=== PATIENT | female | born 1990 | race Two or more races ===

== ENCOUNTER → 2016-11-30 | Outpatient (CLI) | payer OTHER | LOC: MW.CHOBGYN 10:47 → MERGE 10:47 | PROVIDERS: ATTEND Obstetrics & Gynecology | DX: O09.30 Supervision of pregnancy with insufficient antenatal care, unspecified trimester (principal) | CPT/HCPCS: 36415; 80305; 81003; 85027; 86592; 86762; 86803; 86850; 86900; 86901; 87070; 87086; 87340; 87389; 87491; 87591 ==

== ENCOUNTER → 2016-12-08 | Outpatient (CLI) | payer OTHER ==
--- NOTE | 2016-12-08 16:58 | US ---
Examination: Greater than 14 weeks transabdominal ultrasound with color Doppler and M-mode evaluatio n. HISTORY: Light care FINDINGS: LMP is 06/27/2016 EVALUATION: Fundal placenta with a breech lie and grade 1-2. Visually amniotic fluid is within normal limits. Three-vessel cord is seen. Ventricles are within normal limits. Four chamber heart is noted. Heart rate is 135 beats per minute. BIOMETRY AND GESTATIONAL AGE: Biparietal diameter 5.5 cm. The abdominal circumference measures 18.3 cm. The femoral length is 4 cm with head circumference of 21.4 cm. Gestational age is 23 weeks and 0 days. The expected date of de livery is approximately 04/06/2017. Fetus weight is 563 grams. Overall the fetus is within the 27th p ercentile. Other detail anatomy summarized into PACs sheet after the images. No anatomical anomalies. IMPRESSION: Single active IU with breech fetus. Fundal placenta with grade 1-2, no placenta previa. No anomalies are seen. Amniotic fluid appears within normal limits.
== END ==
LOC: MW.US 10:16
PROVIDERS: ATTEND Obstetrics & Gynecology
DX: Z36 Encounter for antenatal screening of mother (principal); Z3A.23 23 weeks gestation of pregnancy
CPT/HCPCS: 76805; 76805-26

== ENCOUNTER → 2016-12-28 | Outpatient (CLI) | payer OTHER | LOC: MW.CHOBGYN 09:09 | PROVIDERS: ATTEND Obstetrics & Gynecology | DX: Z34.90 Encounter for supervision of normal pregnancy, unspecified, unspecified trimester (principal); Z53.8 Procedure and treatment not carried out for other reasons | CPT/HCPCS: 81003 ==

== ENCOUNTER → 2017-01-24 | Outpatient (CLI) | payer OTHER | END | disposition home or self-care (01) | LOC: MW.CHOBGYN 15:41 | PROVIDERS: ATTEND Obstetrics & Gynecology | DX: Z34.90 Encounter for supervision of normal pregnancy, unspecified, unspecified trimester (principal) | CPT/HCPCS: 36415; 81003; 82950; 85027 ==

== ENCOUNTER 2017-04-04 06:23 | Inpatient (IN) | payer MEDICAID ==
[2017-04-04] MEDS ORDERED: Sodium Chloride 0.9% 10 ML Syringe FLUSH PRN (06:34)
[2017-04-04] MEDS ORDERED: Nalbuphine 10 MG/1 ML Vial IVPUSH PRN (06:34)
[2017-04-04] MEDS ORDERED: Terbutaline 1 MG/ML SDV SUBCUT PRN (06:34)
[2017-04-04] MEDS ORDERED: Sodium Chloride 0.9% 2.5 ML Syringe FLUSH PRN (06:34)
[2017-04-04] MEDS ORDERED: Carboprost Tromethamine 250 MCG/1 ML Amp IM PRN (06:34)
[2017-04-04] MEDS ORDERED: Misoprostol 200 MCG Tab PO PRN (06:34)
[2017-04-04] MEDS ORDERED: Misoprostol 25 MCG (1/4 of 100 MCG) Tab VAG PRN (06:34)
[2017-04-04] MEDS ORDERED: Lidocaine 1% 50 ML MDV INJECT PRN (06:34)
[2017-04-04] MEDS ORDERED: Butorphanol 1 MG/ML SDV IVPUSH PRN (06:34)
[2017-04-04] MEDS ORDERED: Methylergonovine 0.2 MG/1 ML Amp IM PRN (06:34)
[2017-04-04] MEDS ORDERED: Water For Irrigation,Sterile 1,000 ML Container IRR PRN (06:34)
[2017-04-04] MEDS ORDERED: Lactated Ringers 1,000 ML IV SCH (06:45)
[2017-04-04] MEDS ORDERED: Oxytocin/Lactated Ringers 30 UNIT/500 ML BAG IV SCH (06:45)
[2017-04-04] MEDS ORDERED: Misoprostol 25 MCG (1/4 of 100 MCG) Tab VAG SCH (06:45)
[2017-04-04] MEDS ORDERED: Oxytocin/Lactated Ringers 30 UNIT/500 ML BAG ONE (09:35)
--- NOTE | 2017-04-04 09:42 | PCM.LDHP ---
L&D History of Present Illness - General Date of Service: 04/04/17 Admit Problem/Dx: Patient Status Order with Admit Dx/Problem 04/04/17 06:34 Patient Status [ADT] Routine Admission Diagnosis/Problem Admission Diagnosis/Problem - planned Source of Information: Patient History Limitations: Reports: No Limitations - History of Present Illness Improves with: Reports: None Worsens with: Reports: None Associated Symptoms: Reports: N - Related Data Allergies/Adverse Reactions: Allergies Allergy/AdvReac Type Severity Reaction Status Date / Time No Known Allergies Allergy Verified 04/04/17 06:32 Past Medical History - Past Health History Medical/Surgical History: Denies Medical/Surgical History Social & Family History - Family History Family Medical History: Noncontributory - Tobacco Use Smoking Status *Q: Never Smoker Second Hand Smoke Exposure: No - Caffeine Use Caffeine Use: Reports: None - Recreational Drug Use Recreational Drug Use: No H&P Review of Systems - Review of Systems: Review Of Systems: See Below General: Reports: No Symptoms HEENT: Reports: No Symptoms Pulmonary: Reports: No Symptoms Cardiovascular: Reports: No Symptoms Gastrointestinal: Reports: No Symptoms Genitourinary: Reports: No Symptoms Musculoskeletal: Reports: No Symptoms Skin: Reports: No Symptoms Psychiatric: Reports: No Symptoms Neurological: Reports: No Symptoms Hematologic/Lymphatic: Reports: No Symptoms Immunologic: Reports: No Symptoms L&D Exam - Exam Exam: See Below - Vital Signs Weight: 62.596 kg - OB Specific Fundal Height In cm: 36 Contraction Intensity: Moderate Movement: Active Heart Tones: Present Presentation: Vertex - Saucedo Score Saucedo Score Cervix Position: Anterior Saucedo Score Consistency: Soft Saucedo Score Effacement: >80% Saucedo Score Dilation: > 5 cm Saucedo Score Infant's Station: -2 Saucedo Score Total: 11 - Patient Data Lab Results Last 24 hrs: Laboratory Results - last 24 hr 04/04/17 04/04/17 Range/Units 06:53 06:53 WBC 8.50 (4.0-11.0) K/uL RBC 4.27 L (4.30-5.90) M/uL Hgb 10.5 L (12.0-16.0) g/dL Hct 33.3 L (36.0-46.0) % MCV 78.0 L (80.0-98.0) fL MCH 24.6 L (27.0-32.0) pg MCHC 31.5 (31.0-37.0) g/dL RDW Std Deviation 42.4 (28.0-62.0) fl RDW Coeff of Moon 15 (11.0-15.0) % Plt Count 143 L (150-400) K/uL Nucleated RBC % 0.0 /100WBC Nucleated RBCs # 0 K/uL Blood Type O POSITIVE Antibody Screen NEGATIVE Result Diagrams: 04/04/17 06:53 Problem List Initiated/Reviewed/Updated: Yes Orders Last 24hrs: Active Orders 24 hr Category Date Time Status Patient Status [ADT] Routine ADT 04/04/17 06:34 Active Bedrest Bathroom Privileges [RC] ASDIRECTED Care 04/04/17 06:34 Active Communication Order [RC] ASDIRECTED Care 04/04/17 06:34 Active May Shower [RC] ASDIRECTED Care 04/04/17 06:34 Active Notify Provider [RC] PRN Care 04/04/17 06:34 Active Oxygen Therapy [RC] ASDIRECTED Care 04/04/17 06:34 Active Up ad Chen [RC] ASDIRECTED Care 04/04/17 06:34 Active Vital Signs [RC] PER UNIT ROUTINE Care 04/04/17 06:34 Active Butorphanol [Stadol] Med 04/04/17 06:34 Active 1 mg IVPUSH Q1H PRN Carboprost Tromethamine [Hemabate DS] Med 04/04/17 06:34 Active 250 mcg IM ASDIRECTED PRN Lactated Ringers [Ringers, Lactated] 1,000 ml Med 04/04/17 06:45 Active IV ASDIRECTED Lidocaine 1% [Xylocaine 1%] Med 04/04/17 06:34 Active 50 ml INJECT .ONCE PRN Methylergonovine [Methergine] Med 04/04/17 06:34 Active 0.2 mg IM ASDIRECTED PRN Misoprostol [Cytotec] Med 04/04/17 06:34 Active 200 mcg PO .ONCE PRN Misoprostol [Cytotec] Med 04/04/17 06:45 Active 25 mcg PO Q4H Misoprostol [Cytotec] Med 04/04/17 06:45 Active 25 mcg VAG .ONCE Misoprostol [Cytotec] Med 04/04/17 06:34 Active 25 mcg VAG Q4H PRN Sodium Chloride 0.9% [Saline Flush] Med 04/04/17 06:34 Active 10 ml FLUSH ASDIRECTED PRN Sodium Chloride 0.9% [Saline Flush] Med 04/04/17 06:34 Active 2.5 ml FLUSH ASDIRECTED PRN Terbutaline [Brethine] Med 04/04/17 06:34 Active 0.25 mg SUBCUT ASDIRECTED PRN Water For Irrigation,Sterile [Sterile Water for Med 04/04/17 06:34 Active Irrigation] 1,000 ml IRR ASDIRECTED PRN Scalp Electrode [WOMSER] Per Unit Routine Oth 04/04/17 06:34 Ordered Peripheral IV Insertion Adult [OM.PC] Routine Oth 04/04/17 06:34 Ordered Resuscitation Status Routine Resus Stat 04/04/17 06:34 Ordered Medication Orders Butorphanol Tartrate (Stadol) 1 mg IVPUSH Q1H PRN PRN Reason: Pain Carboprost Tromethamine (Hemabate Ds) 250 mcg IM ASDIRECTED PRN PRN Reason: Post Hemorrhage Lactated Ringer's (Ringers, Lactated) 1,000 mls @ 150 mls/hr IV ASDIRECTED LINK Lidocaine HCl (Xylocaine 1%) 50 ml INJECT .ONCE PRN PRN Reason: Laceration repair Methylergonovine Maleate (Methergine) 0.2 mg IM ASDIRECTED PRN PRN Reason: Post Hemorrhage Misoprostol (Cytotec) 200 mcg PO .ONCE PRN PRN Reason: Post Hemorrhage Misoprostol (Cytotec) 25 mcg VAG .ONCE LINK Misoprostol (Cytotec) 25 mcg VAG Q4H PRN PRN Reason: Cervical Ripening Stop: 04/05/17 10:35 Misoprostol (Cytotec) 25 mcg PO Q4H LINK Sodium Chloride (Saline Flush) 10 ml FLUSH ASDIRECTED PRN PRN Reason: Keep Vein Open Sodium Chloride (Saline Flush) 2.5 ml FLUSH ASDIRECTED PRN PRN Reason: Keep Vein Open Sterile Water (Sterile Water For Irrigation) 1,000 ml IRR ASDIRECTED PRN PRN Reason: delivery Terbutaline Sulfate (Brethine) 0.25 mg SUBCUT ASDIRECTED PRN PRN Reason: Tacysystole Assessment/Plan Comment:: Term in active labor.
[2017-04-04] MEDS ORDERED: Witch Hazel Medicated Pads 40/Jar TOP PRN (10:03)
[2017-04-04] MEDS ORDERED: Benzocaine/Menthol 20%-0.5% Spray 78 GM Cannister TOP PRN (10:03)
[2017-04-04] MEDS ORDERED: Ibuprofen 400 MG Tab PO PRN (10:03)
[2017-04-04] MEDS ORDERED: Bisacodyl 10 MG Supp RECTAL PRN (10:03)
[2017-04-04] MEDS ORDERED: oxyCODONE 5 MG Tab PO PRN (10:03)
[2017-04-04] MEDS ORDERED: Lanolin 100% Cream 7 GM Tube TOP PRN (10:03)
[2017-04-04] MEDS ORDERED: Acetaminophen 500 MG Tab PO PRN ×2 (10:03)
[2017-04-04] MEDS ORDERED: Docusate Sodium 100 MG Cap PO PRN (10:03)
[2017-04-04] MEDS: Ibuprofen 800 MG Tab PO PRN ×2 (11:12→16:31)
--- NOTE | 2017-04-04 14:08 | OR ---
SURGEON: Odilon Mccallum MD DATE OF PROCEDURE: 04/04/2017 Ms. Rojo is 27. She is para 2-0-0-2. She is followed in our clinic in this . She had no complications. Her GBS status was negative. She was admitted early in this labor in active labor. At the time of admission, she was 4-5 cm with a bulging bag of water. heart rate was essentially normal. Contraction was moderate to severe every 3-4 minutes. At 8:30 a.m., I examined the patient, she was 7 cm complete vertex, -2 station with a bulging bag of water. I did an artificial rupture of the membrane, which was clear. The patient continued to progress. She became complete complete and she was able to accomplish normal spontaneous vaginal delivery, male fetus. score reported to be 8 and 9. The weight was not available. There was one tight nuchal cord. The placenta delivered spontaneous, complete, and intact without any problem. There was no need for episiotomy. There was no laceration labial or perineal or any. Estimated blood loss was 250 to 300 mL in this . heart rate was category 1 through the entire process of labor. There was no complication. JULIAN / SCOTT /[id number]
[2017-04-04] MEDS: Misoprostol 25 MCG (1/4 of 100 MCG) Tab PO SCH ×2 (19:57→19:58)
[2017-04-05] MEDS: Ibuprofen 800 MG Tab PO PRN (02:42)
[2017-04-05] MEDS: Misoprostol 25 MCG (1/4 of 100 MCG) Tab PO SCH (05:34)
[2017-04-05 08:14] VITALS: BP 100/54
--- NOTE | 2017-04-05 08:46 | PCM.PNPP ---
- General Info Date of Service: 04/05/17 Functional Status: Reports: pain controlled - Review of Systems General: Reports: No Symptoms HEENT: Reports: no symptoms Pulmonary: Reports: no symptoms Cardiovascular: Reports: No Symptoms Gastrointestinal: Reports: No symptoms Genitourinary: Reports: no symptoms Musculoskeletal: Reports: no symptoms Skin: Reports: no symptoms Neurological: Reports: No Symptoms Psychiatric: Reports: no symptoms - General Info Date of Service: 04/05/17 - Patient Data Vital Signs - most recent: Last Vital Signs Temp 36.6 C 04/05/17 08:13 Pulse 63 04/05/17 08:13 Resp 20 04/05/17 08:13 BP 100/54 L 04/05/17 08:13 Pulse Ox 98 04/05/17 08:13 Weight - most recent: 62.596 kg Lab Results - last 24 hrs: Laboratory Results - last 24 hr 04/05/17 Range/Units 05:55 Hgb 10.1 L (12.0-16.0) g/dL Hct 33.4 L (36.0-46.0) % Med Orders - Current: Current Medications Acetaminophen (Tylenol Extra Strength) 500 mg PO Q4H PRN PRN Reason: Pain Acetaminophen (Tylenol Extra Strength) 1,000 mg PO Q4H PRN PRN Reason: Pain Benzocaine/Menthol (Dermoplast Pain Relief 20%-0.5% [place]) 78 gm TOP ASDIRECTED PRN PRN Reason: Perineal Comfort Measure Bisacodyl (Dulcolax) 10 mg RECTAL .ONCE PRN PRN Reason: Constipation Butorphanol Tartrate (Stadol) 1 mg IVPUSH Q1H PRN PRN Reason: Pain Carboprost Tromethamine (Hemabate Ds) 250 mcg IM ASDIRECTED PRN PRN Reason: Post Hemorrhage Docusate Sodium (Colace) 100 mg PO BID PRN PRN Reason: Constipation Emollient Ointment (Lansinoh Hpa) 0 gm TOP ASDIRECTED PRN PRN Reason: Sore Nipples Lactated Ringer's (Ringers, Lactated) 1,000 mls @ 150 mls/hr IV ASDIRECTED LINK Ibuprofen (Motrin) 400 mg PO Q4H PRN PRN Reason: Pain Ibuprofen (Motrin) 800 mg PO Q6H PRN PRN Reason: Pain Last Admin: 04/05/17 02:42 Dose: 800 mg Lidocaine HCl (Xylocaine 1%) 50 ml INJECT .ONCE PRN PRN Reason: Laceration repair Methylergonovine Maleate (Methergine) 0.2 mg IM ASDIRECTED PRN PRN Reason: Post Hemorrhage Misoprostol (Cytotec) 200 mcg PO .ONCE PRN PRN Reason: Post Hemorrhage Misoprostol (Cytotec) 25 mcg VAG .ONCE LINK Misoprostol (Cytotec) 25 mcg VAG Q4H PRN PRN Reason: Cervical Ripening Stop: 04/05/17 10:35 Misoprostol (Cytotec) 25 mcg PO Q4H LINK Last Admin: 04/05/17 05:34 Dose: Not Given Oxycodone HCl (Oxycodone) 5 mg PO Q2H PRN PRN Reason: Pain Sodium Chloride (Saline Flush) 10 ml FLUSH ASDIRECTED PRN PRN Reason: Keep Vein Open Sodium Chloride (Saline Flush) 2.5 ml FLUSH ASDIRECTED PRN PRN Reason: Keep Vein Open Sterile Water (Sterile Water For Irrigation) 1,000 ml IRR ASDIRECTED PRN PRN Reason: delivery Terbutaline Sulfate (Brethine) 0.25 mg SUBCUT ASDIRECTED PRN PRN Reason: Tacysystole Witch Melissa (Tucks) 1 pad TOP ASDIRECTED PRN PRN Reason: comfort care Discontinued Medications Oxytocin/Lactated Ringer's (Pitocin In Lr 30 Units/500 Ml) 30 unit in 500 mls @ 999 mls/hr IV TITRATE LINK; 999 MUNITS/MIN PRN Reason: Protocol Stop: 04/04/17 07:16 Last Admin: 04/04/17 19:58 Dose: Not Given Oxytocin/Lactated Ringer's (Pitocin In Lr 30 Units/500 Ml) Confirm Administered Dose 30 unit in 500 mls @ as directed .ROUTE .STK-MED ONE Stop: 04/04/17 09:36 Last Admin: 04/04/17 11:14 Dose: 500 unit Nalbuphine HCl (Nubain) 10 mg IVPUSH Q1H PRN PRN Reason: Pain (severe 7-10) Stop: 04/04/17 08:35 - Interaction Infant Disposition, : [place] in Room with Family Interaction: Holding Infant Feeding: Attempted ; Nursed Fair/Poor - Recovery Exam Fundal Tone: Firm Fundal Level: 1 Fingerbreadths Below Umbilicus Fundal Placement: Midline Lochia Amount: Scant Lochia Color: Rubra/Red Perineum Description: Intact, Minimal Bruising/Swelling Episiotomy/Laceration: None Bladder Status: Voiding Urinary Elimination: Voided - Exam General: alert, oriented HEENT: Pupils equal Neck: supple Lungs: Clear to auscultation, Normal respiratory effort Cardiovascular: Regular Rate, Regular Rhythm Abdomen: bowel sounds present, soft, no tenderness, no distension Extremities: no edema Skin: warm, dry, intact Wound/Incisions: healing well Neurological: no new focal deficit Psy/Mental Status: alert, normal affect, normal mood - Problem List Review Problem List Initiated/Reviewed/Updated: Yes - My Orders Last 24 Hours: My Active Orders 04/04/17 10:03 Patient Status [ADT] Routine May Shower [RC] ASDIRECTED Up ad Chen [RC] ASDIRECTED Vital Signs [RC] PER UNIT ROUTINE Acetaminophen [Tylenol Extra Strength] 1,000 mg PO Q4H PRN Acetaminophen [Tylenol Extra Strength] 500 mg PO Q4H PRN Benzocaine/Menthol [Dermoplast Pain Relief 20%-0.5% [place]] 78 gm TOP ASDIRECTED PRN Bisacodyl [Dulcolax] 10 mg RECTAL .ONCE PRN Docusate Sodium [Colace] 100 mg PO BID PRN Ibuprofen [Motrin] 400 mg PO Q4H PRN Ibuprofen [Motrin] 800 mg PO Q6H PRN Lanolin [Lansinoh HPA] See Dose Instructions TOP ASDIRECTED PRN Witch Melissa [Tucks] 1 pad TOP ASDIRECTED PRN oxyCODONE 5 mg PO Q2H PRN Assess Lochia [WOMSER] Per Unit Routine Assess Uterine Involution [WOMSER] Per Unit Routine Peripheral IV Discontinue [OM.PC] Routine 04/04/17 Lunch Regular Diet [DIET] - Assessment Assessment:: Status post normal spontaneous vaginal delivery yesterday she is doing well today and I will sent her home today - Plan Plan:: Term in active labor.
--- NOTE | 2017-04-05 08:46 | PCM.DCSUM1 ---
Discharge Summary - Discharge Data Discharge Date: 04/05/17 Discharge Disposition: Home, Self-Care 01 Condition: Good - Patient Instructions Activity: As Tolerated Driving: May Drive Today Showering/Bathing: May Shower Notify Provider of: Fever, Increased Pain, Nausea and/or Vomiting - Discharge Plan Referrals: [facility] [Outside] Odilon Mccallum MD [Physician] - 05/09/17 9:30 am - General Info Date of Service: 04/05/17 Functional Status: Reports: pain controlled - Review of Systems General: Reports: No Symptoms HEENT: Reports: no symptoms Pulmonary: Reports: no symptoms Cardiovascular: Reports: No Symptoms Gastrointestinal: Reports: No symptoms Genitourinary: Reports: no symptoms Musculoskeletal: Reports: no symptoms Skin: Reports: no symptoms Neurological: Reports: No Symptoms Psychiatric: Reports: no symptoms - Patient Data Vitals - Most Recent: Last Vital Signs Temp 36.6 C 04/05/17 08:13 Pulse 63 04/05/17 08:13 Resp 20 04/05/17 08:13 BP 100/54 L 04/05/17 08:13 Pulse Ox 98 04/05/17 08:13 Weight - Most Recent: 62.596 kg Lab Results - Last 24 hrs: Laboratory Results - last 24 hr 04/05/17 Range/Units 05:55 Hgb 10.1 L (12.0-16.0) g/dL Hct 33.4 L (36.0-46.0) % Med Orders - Current: Current Medications Acetaminophen (Tylenol Extra Strength) 500 mg PO Q4H PRN PRN Reason: Pain Acetaminophen (Tylenol Extra Strength) 1,000 mg PO Q4H PRN PRN Reason: Pain Benzocaine/Menthol (Dermoplast Pain Relief 20%-0.5% [place]) 78 gm TOP ASDIRECTED PRN PRN Reason: Perineal Comfort Measure Bisacodyl (Dulcolax) 10 mg RECTAL .ONCE PRN PRN Reason: Constipation Butorphanol Tartrate (Stadol) 1 mg IVPUSH Q1H PRN PRN Reason: Pain Carboprost Tromethamine (Hemabate Ds) 250 mcg IM ASDIRECTED PRN PRN Reason: Post Hemorrhage Docusate Sodium (Colace) 100 mg PO BID PRN PRN Reason: Constipation Emollient Ointment (Lansinoh Hpa) 0 gm TOP ASDIRECTED PRN PRN Reason: Sore Nipples Lactated Ringer's (Ringers, Lactated) 1,000 mls @ 150 mls/hr IV ASDIRECTED LINK Ibuprofen (Motrin) 400 mg PO Q4H PRN PRN Reason: Pain Ibuprofen (Motrin) 800 mg PO Q6H PRN PRN Reason: Pain Last Admin: 04/05/17 02:42 Dose: 800 mg Lidocaine HCl (Xylocaine 1%) 50 ml INJECT .ONCE PRN PRN Reason: Laceration repair Methylergonovine Maleate (Methergine) 0.2 mg IM ASDIRECTED PRN PRN Reason: Post Hemorrhage Misoprostol (Cytotec) 200 mcg PO .ONCE PRN PRN Reason: Post Hemorrhage Misoprostol (Cytotec) 25 mcg VAG .ONCE LINK Misoprostol (Cytotec) 25 mcg VAG Q4H PRN PRN Reason: Cervical Ripening Stop: 04/05/17 10:35 Misoprostol (Cytotec) 25 mcg PO Q4H LINK Last Admin: 04/05/17 05:34 Dose: Not Given Oxycodone HCl (Oxycodone) 5 mg PO Q2H PRN PRN Reason: Pain Sodium Chloride (Saline Flush) 10 ml FLUSH ASDIRECTED PRN PRN Reason: Keep Vein Open Sodium Chloride (Saline Flush) 2.5 ml FLUSH ASDIRECTED PRN PRN Reason: Keep Vein Open Sterile Water (Sterile Water For Irrigation) 1,000 ml IRR ASDIRECTED PRN PRN Reason: delivery Terbutaline Sulfate (Brethine) 0.25 mg SUBCUT ASDIRECTED PRN PRN Reason: Tacysystole Witch Melissa (Tucks) 1 pad TOP ASDIRECTED PRN PRN Reason: comfort care Discontinued Medications Oxytocin/Lactated Ringer's (Pitocin In Lr 30 Units/500 Ml) 30 unit in 500 mls @ 999 mls/hr IV TITRATE LINK; 999 MUNITS/MIN PRN Reason: Protocol Stop: 04/04/17 07:16 Last Admin: 04/04/17 19:58 Dose: Not Given Oxytocin/Lactated Ringer's (Pitocin In Lr 30 Units/500 Ml) Confirm Administered Dose 30 unit in 500 mls @ as directed .ROUTE .[facility]-MED ONE Stop: 04/04/17 09:36 Last Admin: 04/04/17 11:14 Dose: 500 unit Nalbuphine HCl (Nubain) 10 mg IVPUSH Q1H PRN PRN Reason: Pain (severe 7-10) Stop: 04/04/17 08:35 - Exam General: Reports: alert, oriented HEENT: Reports: Pupils equal, Pupils reactive, EOMI, Mucous membr. moist/pink Neck: Reports: supple Lungs: Reports: Clear to auscultation, Normal respiratory effort Cardiovascular: Reports: Regular Rate, Regular Rhythm Abdomen: Reports: bowel sounds present, soft, no tenderness, no distension (Female) Exam: Normal External Exam, Normal Speculum Exam, Normal Bimanual Exam Rectal (Female) Exam: Normal Exam, Normal Rectal Tone Back Exam: Reports: Normal Inspection, Full Range of Motion Extremities: Reports: no edema, normal pulses Skin: Reports: warm, dry, intact Wound/Incisions: Reports: healing well Neurological: Reports: no new focal deficit Psy/Mental Status: Reports: alert, normal affect, normal mood *Q Meaningful Use (DIS) - VTE *Q VTE Criteria *Q: - Stroke *Q Stroke Criteria *Q: - AMI *Q AMI Criteria *Q:
== END 2017-04-05 11:10 | disposition home or self-care (01) | DRG 775 ==
LOC: MW.OBCHECK 06:23 → MW.OB 06:25 → MW.OBCHECK 06:34 → MW.OB 06:34 → OBSVTOIN 09:59
PROVIDERS: ADMIT Obstetrics & Gynecology; ATTEND Obstetrics & Gynecology
PROC: 10E0XZZ Delivery of Products of Conception, External Approach (ICD-10-PCS; principal; 2017-04-04)
PROC: 10907ZC Drainage of Amniotic Fluid, Therapeutic from Products of Conception, Via Natural or Artificial Opening (ICD-10-PCS; 2017-04-04)
DX: O69.1XX0 Labor and delivery complicated by cord around neck, with compression, not applicable or unspecified (principal); Z3A.40 40 weeks gestation of pregnancy; Z37.0 Single live birth
CPT/HCPCS: 36415; 59025; 85014; 85018; 85027; 86850; 86900; 86901; A9270-GY

== ENCOUNTER 2020-07-31 06:41 | Day surgery (SDC) | payer OTHER ==
[~2020-07-31 06:41] MED LIST: Lactated Ringers 1,000 ML IV SCH
[2020-07-31] MEDS ORDERED: Atropine 0.1 MG/ML 10 ML Syringe IVPUSH PRN ×2 (06:58)
[2020-07-31] MEDS ORDERED: fentaNYL 100 MCG/2 ML SDV IVPUSH PRN (06:58)
[2020-07-31] MEDS ORDERED: Naloxone 0.4 MG/ML Syringe IVPUSH PRN (06:58)
[2020-07-31] MEDS ORDERED: Sodium Chloride 0.9% 10 ML SDV IV PRN (06:58)
[2020-07-31] MEDS ORDERED: 50% Dextrose in Water 50 ML Syringe IVPUSH PRN (06:58)
[2020-07-31] MEDS ORDERED: EPINEPHrine 1:10,000 1 MG/10 ML Syringe IVPUSH PRN (06:58)
[2020-07-31] MEDS ORDERED: Sodium Chloride 0.9% 10 ML Syringe FLUSH PRN (06:58)
[2020-07-31] MEDS ORDERED: Sodium Chloride 0.9% 2.5 ML Syringe FLUSH PRN (06:58)
[2020-07-31] MEDS ORDERED: Albuterol 0.083% 2.5 MG/3 ML Neb Soln NEB PRN (06:58)
[2020-07-31] MEDS ORDERED: fentaNYL 250 MCG/5 ML SDV ONE (07:06)
[2020-07-31] MEDS ORDERED: Lidocaine 2% 5 ML SDV ONE (07:06)
[2020-07-31] MEDS ORDERED: Propofol 200 MG/20 ML SDV ONE (07:06)
[2020-07-31] MEDS ORDERED: Ondansetron 4 MG/2 ML SDV ONE (07:06)
[2020-07-31] MEDS ORDERED: Midazolam 1 MG/ML 2 ML SDV ONE (07:06)
--- NOTE | 2020-07-31 07:10 | PCM.PREANE ---
Preanesthetic Assessment - Anesthesia/Transfusion/Family Hx Anesthesia History: Prior Anesthesia Without Reaction Family History of Anesthesia Reaction: No Transfusion History: No Prior Transfusion(s) Intubation History: Unknown - Review of Systems General: No Symptoms Pulmonary: No Symptoms Cardiovascular: No Symptoms Gastrointestinal: No Symptoms Neurological: No Symptoms Other: Reports: None - Physical Assessment Height: 5 ft 2 in Weight: 65.317 kg ASA Class: 1 Mental Status: Alert & Oriented x3 Airway Class: Mallampati = 1 Dentition: Reports: Normal Dentition Thyro-Mental Finger Breadths: 3 Mouth Opening Finger Breadths: 3 ROM/Head Extension: Full Lungs: Clear to Auscultation, Normal Respiratory Effort Cardiovascular: Regular Rate, Regular Rhythm - Allergies Allergies/Adverse Reactions: Allergies Allergy/AdvReac Type Severity Reaction Status Date / Time No Known Allergies Allergy Verified 07/25/20 10:53 - Blood Blood Available: No - Anesthesia Plan Pre-Op Medication Ordered: None - Acknowledgements Anesthesia Type Planned: General Anesthesia Pt an Appropriate Candidate for the Planned Anesthesia: Yes Alternatives and Risks of Anesthesia Discussed w Pt/Guardian: Yes Pt/Guardian Understands and Agrees with Anesthesia Plan: Yes PreAnesthesia Questionnaire - Past Health History Medical/Surgical History: Denies Medical/Surgical History HEENT History: Reports: None Cardiovascular History: Reports: None Respiratory History: Reports: None Genitourinary History: Reports: None Musculoskeletal History: Reports: None Neurological History: Reports: None Psychiatric History: Reports: None Endocrine/Metabolic History: Reports: None Hematologic History: Reports: None Immunologic History: Reports: None Dermatologic History: Reports: None - Infectious Disease History Infectious Disease History: Reports: None - Past Surgical History Head Surgeries/Procedures: Reports: None HEENT Surgical History: Reports: None Cardiovascular Surgical History: Reports: None Respiratory Surgical History: Reports: None GI Surgical History: Reports: Cholecystectomy Female Surgical History: Reports: None Musculoskeletal Surgical History: Reports: None - SUBSTANCE USE Tobacco Use Status *Q: Never Tobacco User - HOME MEDS Home Medications: Home Meds . [No Known Home Meds] 07/25/20 [History] - CURRENT (IN HOUSE) MEDS Current Meds: Current Medications Albuterol (Proventil Neb Soln) 2.5 mg NEB ONETIME PRN PRN Reason: Wheezing Atropine Sulfate (Atropine 0.1 Mg/Ml) 0.5 mg IVPUSH ASDIRECTED PRN PRN Reason: Hypo-perfusion Atropine Sulfate (Atropine 0.1 Mg/Ml) 1 mg IVPUSH ASDIRECTED PRN PRN Reason: Hypo-Perfusion Dextrose/Water (Dextrose 50% In Water) 50 ml IVPUSH ASDIRECTED PRN PRN Reason: Hypoglycemia Epinephrine HCl (Epinephrine 1:10,000) 1 mg IVPUSH ASDIRECTED PRN PRN Reason: ACLS Guidelines Fentanyl (Sublimaze) 50 - 100 mcg IVPUSH Q5M PRN PRN Reason: Pain Lactated Ringer's (Ringers, Lactated) 1,000 mls @ 125 mls/hr IV ASDIRECTED LINK Naloxone HCl (Narcan) 0.1 mg IVPUSH ASDIRECTED PRN PRN Reason: Respiratory Depression Sodium Chloride (Saline Flush) 10 ml FLUSH ASDIRECTED PRN PRN Reason: Keep Vein Open Sodium Chloride (Saline Flush) 2.5 ml FLUSH ASDIRECTED PRN PRN Reason: Keep Vein Open Sodium Chloride (Normal Saline) 10 ml IV ASDIRECTED PRN PRN Reason: IV Use
[2020-07-31] MEDS ORDERED: Glycopyrrolate 0.2 MG/ML SDV ONE (08:18)
--- NOTE | 2020-07-31 08:33 | PCM.OPNOTE ---
- General Post-Op/Procedure Note Date of Surgery/Procedure: 07/31/20 Operative Procedure(s): Hystroscopy. Pre Op Diagnosis: Lost IUD Post-Op Diagnosis: Same Anesthesia Technique: General LMA Primary Surgeon: Odilon ARGUETA in mLs: 10 Complications: None Condition: Good
--- NOTE | 2020-07-31 08:34 | PCM.DCSUM1 ---
Discharge Summary - Hospital Course Diagnosis: Stroke: No - Discharge Data Discharge Date: 07/31/20 Discharge Disposition: Home, Self-Care 01 Condition: Good - Referral to Home Health Primary Care Physician: Odilon Mccallum MD - Patient Summary/Data Operative Procedure(s) Performed: Hystroscopy. - Patient Instructions Diet: Usual Diet as Tolerated Activity: As Tolerated Showering/Bathing: May Shower - Discharge Plan Home Medications: Home Meds . [No Known Home Meds] 07/25/20 [History] - Discharge Summary/Plan Comment DC Time >30 min.: Yes - General Info Date of Service: 07/31/20 Functional Status: Reports: Pain Controlled - Review of Systems General: Reports: No Symptoms HEENT: Reports: No Symptoms Pulmonary: Reports: No Symptoms Cardiovascular: Reports: No Symptoms Gastrointestinal: Reports: No Symptoms Genitourinary: Reports: No Symptoms Musculoskeletal: Reports: No Symptoms Skin: Reports: No Symptoms Neurological: Reports: No Symptoms Psychiatric: Reports: No Symptoms - Patient Data Vitals - Most Recent: Last Vital Signs Temp 37.0 C 07/31/20 07:23 Pulse 75 07/31/20 07:23 Resp 16 07/31/20 07:23 BP 110/64 07/31/20 07:23 Pulse Ox 95 07/31/20 07:23 Weight - Most Recent: 65.317 kg Lab Results - Last 24 hrs: Laboratory Results - last 24 hr 07/31/20 Range/Units 06:50 Urine HCG, Qual NEGATIVE (NEGATIVE) Med Orders - Current: Current Medications Albuterol (Proventil Neb Soln) 2.5 mg NEB ONETIME PRN PRN Reason: Wheezing Atropine Sulfate (Atropine 0.1 Mg/Ml) 0.5 mg IVPUSH ASDIRECTED PRN PRN Reason: Hypo-perfusion Atropine Sulfate (Atropine 0.1 Mg/Ml) 1 mg IVPUSH ASDIRECTED PRN PRN Reason: Hypo-Perfusion Dextrose/Water (Dextrose 50% In Water) 50 ml IVPUSH ASDIRECTED PRN PRN Reason: Hypoglycemia Epinephrine HCl (Epinephrine 1:10,000) 1 mg IVPUSH ASDIRECTED PRN PRN Reason: ACLS Guidelines Fentanyl (Sublimaze) 50 - 100 mcg IVPUSH Q5M PRN PRN Reason: Pain Lactated Ringer's (Ringers, Lactated) 1,000 mls @ 125 mls/hr IV ASDIRECTED LINK Last Admin: 07/31/20 07:23 Dose: 125 mls/hr Documented by: Naloxone HCl (Narcan) 0.1 mg IVPUSH ASDIRECTED PRN PRN Reason: Respiratory Depression Sodium Chloride (Saline Flush) 10 ml FLUSH ASDIRECTED PRN PRN Reason: Keep Vein Open Sodium Chloride (Saline Flush) 2.5 ml FLUSH ASDIRECTED PRN PRN Reason: Keep Vein Open Sodium Chloride (Normal Saline) 10 ml IV ASDIRECTED PRN PRN Reason: IV Use Discontinued Medications Fentanyl (Sublimaze) Confirm Administered Dose 250 mcg .ROUTE .STK-MED ONE Stop: 07/31/20 07:07 Glycopyrrolate (Robinul) Confirm Administered Dose 0.2 mg .ROUTE .STK-MED ONE Stop: 07/31/20 08:19 Lidocaine (Xylocaine-Mpf 2%) Confirm Administered Dose 5 ml .ROUTE .STK-MED ONE Stop: 07/31/20 07:07 Midazolam HCl (Versed 1 Mg/Ml) Confirm Administered Dose 2 mg .ROUTE .STK-MED ONE Stop: 07/31/20 07:07 Ondansetron HCl (Zofran) Confirm Administered Dose 4 mg .ROUTE .STK-MED ONE Stop: 07/31/20 07:07 Propofol (Diprivan 20 Ml) Confirm Administered Dose 200 mg .ROUTE .STK-MED ONE Stop: 07/31/20 07:07 - Exam General: Reports: Alert, Oriented HEENT: Reports: Pupils Equal, Pupils Reactive, EOMI, Mucous Membr. Moist/[place] Neck: Reports: Supple Lungs: Reports: Clear to Auscultation, Normal Respiratory Effort Cardiovascular: Reports: Regular Rate, Regular Rhythm GI/Abdominal Exam: Normal Bowel Sounds, Soft, Non-Tender, No Organomegaly, No Distention, No Abnormal Bruit, No Mass, Pelvis Stable (Female) Exam: Normal External Exam, Normal Speculum Exam, Normal Bimanual Exam Rectal (Female) Exam: Normal Exam, Normal Rectal Tone Back Exam: Reports: Normal Inspection, Full Range of Motion Extremities: Normal Inspection, Normal Range of Motion, Non-Tender, No Pedal Edema, Normal Capillary Refill Skin: Reports: Warm, Dry, Intact Wound/Incisions: Reports: Healing Well Neurological: Reports: No New Focal Deficit Psy/Mental Status: Reports: Alert, Normal Affect, Normal Mood
--- NOTE | 2020-07-31 09:00 | PCM.POSTAN ---
POST ANESTHESIA ASSESSMENT - MENTAL STATUS Mental Status: Alert, Oriented - VITAL SIGNS Vital Signs: Last Vital Signs Temp 36.9 C 07/31/20 08:29 Pulse 85 07/31/20 08:48 Resp 13 07/31/20 08:48 BP 102/66 07/31/20 08:48 Pulse Ox 98 07/31/20 08:48 - RESPIRATORY Respiratory Status: Respiratory Rate WNL, Airway Patent, O2 Saturation Stable - CARDIOVASCULAR CV Status: Pulse Rate WNL, Blood Pressure Stable - GASTROINTESTINAL GI Status: No Symptoms - PAIN Pain Score: 0 - POST OP HYDRATION Hydration Status: Adequate & Stable - OBSERVATIONS Free Text/Narrative:: No anesthesia problems
--- NOTE | 2020-07-31 09:39 | PCM48HPAN ---
Post Anesthesia Note - EVALUATION WITHIN 48HRS OF ANESTHETIC Vital Signs in Normal Range: Yes Patient Participated in Evaluation: Yes Respiratory Function Stable: Yes Airway Patent: Yes Cardiovascular Function Stable: Yes Hydration Status Stable: Yes Pain Control Satisfactory: Yes Nausea and Vomiting Control Satisfactory: Yes Mental Status Recovered: Yes Vital Signs: Last Vital Signs Temp 36.9 C 07/31/20 08:29 Pulse 85 07/31/20 08:48 Resp 13 07/31/20 08:48 BP 102/66 07/31/20 08:48 Pulse Ox 98 07/31/20 08:48 - COMMENTS/OBSERVATIONS Free Text/Narrative:: No anesthesia problems
[2020-07-31 09:57] VITALS: BP 110/69; PULSE 74
--- NOTE | 2020-07-31 13:16 | OR ---
SURGEON: Odilon Mccallum MD DATE OF PROCEDURE: 07/31/2020 PREOPERATIVE DIAGNOSIS: Loss of intrauterine device. POSTOPERATIVE DIAGNOSIS: Loss of intrauterine device. OPERATIONS PERFORMED: Diagnostic hysteroscopy, removal of intrauterine device. PRIMARY SURGEON: Odilon Mccallum MD. IMPROVEMENT RN: OR tech. ANESTHESIA: LMA, Brendan Clarence Norman. ESTIMATED BLOOD LOSS: Minimum. COMPLICATIONS: None. FINDING: Lost IUD in the uterine cavity. INDICATIONS FOR SURGERY: This patient did have a lost IUD. She has not felt the strings for a few years. We attempted to remove it in the office without any success. PROCEDURE IN DETAIL: The patient was brought to the OR, properly identified, and after adequate level of anesthesia, patient placed in lithotomy position, prepped and draped in sterile fashion as usual. Straight catheter was used to empty the bladder and the cervix was already dilated to accommodate a small hysteroscope. Hysteroscopy was performed. The lost IUD is seen, and then using the hysteroscopic graspers, the lost IUD is grasped and removed without any problem. Once we accomplished that, then the procedure ended. Instrument and sponge count was correct. The patient tolerated the procedure well, went to recovery room in stable general condition. JULIAN / SCOTT /[id number]
== END 2020-07-31 09:30 | disposition home or self-care (01) ==
LOC: MW.SDS 06:41
PROVIDERS: ATTEND Obstetrics & Gynecology
DX: T83.32XA Displacement of intrauterine contraceptive device, initial encounter (principal); Z90.49 Acquired absence of other specified parts of digestive tract
CPT/HCPCS: 58562; 81025; 88300; J2001; J2250; J2405; J2704; J3010; J3490; J7120; 00952

== ENCOUNTER 2021-12-07 00:42 | Inpatient (IN) | payer SELFPAY ==
[2021-12-07] MEDS ORDERED: Sodium Chloride 0.9% 100 ML ONE (01:08)
[2021-12-07] MEDS ORDERED: Oxytocin/0.9 % Sodium Chloride 30 UNIT/500 ML BAG ONE (01:08)
[2021-12-07] MEDS ORDERED: Ampicillin 2 GM AdvVial IV ONE (01:08)
[2021-12-07] MEDS ORDERED: Tranexamic Acid 1,000 MG in Sodium Chloride 0.9% 100 ML IV PRN (01:23)
[2021-12-07] MEDS ORDERED: Lidocaine 1% 50 ML MDV INJECT PRN (01:23)
[2021-12-07] MEDS ORDERED: Carboprost Tromethamine 250 MCG/1 ML Amp IM PRN (01:23)
[2021-12-07] MEDS ORDERED: Ampicillin 2 GM in Sodium Chloride 0.9% 100 ML IV ONE (01:23)
[2021-12-07] MEDS ORDERED: Misoprostol 200 MCG Tab PO PRN (01:23)
[2021-12-07] MEDS ORDERED: Butorphanol 1 MG/ML SDV IVPUSH PRN (01:23)
[2021-12-07] MEDS ORDERED: Sodium Chloride 0.9% 10 ML Syringe FLUSH PRN (01:23)
[2021-12-07] MEDS ORDERED: Sodium Chloride 0.9% 20 ML SDV IV PRN (01:23)
[2021-12-07] MEDS ORDERED: Water For Irrigation,Sterile 1,000 ML Container IRR PRN (01:23)
[2021-12-07] MEDS ORDERED: Sodium Chloride 0.9% 2.5 ML Syringe FLUSH PRN (01:23)
[2021-12-07] MEDS ORDERED: Methylergonovine 0.2 MG/1 ML Amp IM PRN (01:23)
[2021-12-07] MEDS ORDERED: Oxytocin/0.9 % Sodium Chloride 30 UNIT/500 ML BAG IV SCH ×2 (01:30→04:00)
[2021-12-07] MEDS ORDERED: Lactated Ringers 1,000 ML IV SCH (01:30)
[2021-12-07] MEDS ORDERED: Butorphanol 1 MG/ML SDV ONE (01:30)
[2021-12-07] MEDS ORDERED: Ampicillin 1 GM in Sodium Chloride 0.9% 50 ML IV SCH (01:30)
[2021-12-07] MEDS ORDERED: Lanolin 100% Cream 7 GM Tube TOP PRN (04:51)
[2021-12-07] MEDS ORDERED: Ibuprofen 400 MG Tab PO PRN (04:51)
[2021-12-07] MEDS ORDERED: Benzocaine/Menthol 20%-0.5% Spray 78 GM Cannister TOP PRN (04:51)
[2021-12-07] MEDS ORDERED: Bisacodyl 10 MG Supp RECTAL PRN (04:51)
[2021-12-07] MEDS ORDERED: Acetaminophen 500 MG Tab PO PRN ×2 (04:51)
[2021-12-07] MEDS ORDERED: Witch Hazel Medicated Pads 40/Jar TOP PRN (04:51)
[2021-12-07] MEDS: Ibuprofen 800 MG Tab PO PRN ×3 (05:22→19:46)
[2021-12-07] MEDS: Docusate Sodium 100 MG Cap PO PRN (19:46)
[2021-12-08] MEDS: Docusate Sodium 100 MG Cap PO PRN ×2 (07:57→20:36)
[2021-12-08] MEDS: Ibuprofen 800 MG Tab PO PRN ×2 (07:57→20:35)
[2021-12-09] MEDS: Ibuprofen 800 MG Tab PO PRN (04:34)
[2021-12-09] MEDS: Docusate Sodium 100 MG Cap PO PRN (09:14)
[2021-12-09 16:21] VITALS: BP 115/81; PULSE 85
== END 2021-12-09 16:07 | disposition home or self-care (01) | DRG 807 ==
LOC: MW.OBCHECK 00:42 → MW.OB 00:52 → MW.OBCHECK 01:23 → MW.OB 01:23 → OBSVTOIN 04:33 → MW.OB 09:13
PROVIDERS: ADMIT Obstetrics & Gynecology Obstetrics; ATTEND Obstetrics & Gynecology Obstetrics
PROC: 10E0XZZ Delivery of Products of Conception, External Approach (ICD-10-PCS; principal; 2021-12-07)
PROC: 10907ZC Drainage of Amniotic Fluid, Therapeutic from Products of Conception, Via Natural or Artificial Opening (ICD-10-PCS; 2021-12-07)
DX: O99.824 Streptococcus B carrier state complicating childbirth (principal); Z37.0 Single live birth; Z3A.38 38 weeks gestation of pregnancy; Z20.822 Contact with and (suspected) exposure to COVID-19
CPT/HCPCS: 36415; 59025; 59409; 85014; 85018; 85027; 86592; 86850; 86900; 86901; A9270-GY; J0290; J0595; J2590; J7120; U0002

== ENCOUNTER 2022-09-25 23:39 | Emergency (ER) | payer BC, OTHER ==
[2022-09-26] MEDS ORDERED: LORazepam 2 MG/ML SDV IVPUSH ONE (00:38)
[2022-09-26 00:58] VITALS: BP 119/72; PULSE 97
== END 2022-09-26 00:58 | disposition home or self-care (01) ==
LOC: MW.ED 23:39
DX: F41.9 Anxiety disorder, unspecified (principal)
CPT/HCPCS: 93005; 96374; 99284; J2060; 93010

== ENCOUNTER 2022-11-24 19:07 | Emergency (ER) | payer SELFPAY ==
[2022-11-24] MEDS ORDERED: Sodium Chloride 0.9% 2.5 ML Syringe FLUSH PRN (19:20)
[2022-11-24] MEDS ORDERED: Sodium Chloride 0.9% 10 ML Syringe FLUSH PRN (19:20)
[2022-11-24] MEDS ORDERED: Sodium Chloride 0.9% 1,000 ML IV ONE (19:20)
[2022-11-24] MEDS ORDERED: Metoclopramide 10 MG/2 ML SDV IVPUSH ONE (19:22)
[2022-11-24] MEDS ORDERED: Morphine 4 MG/ML Syringe IVPUSH ONE (19:22)
[2022-11-24] MEDS ORDERED: Ketorolac 30 MG/ML SDV IVPUSH ONE (19:22)
[2022-11-24 20:27] LABS: POTASSIUM,K 3.4 mmol/L (3.5-5.1)
[2022-11-24] MEDS ORDERED: diphenhydrAMINE 50 MG/ML SDV IVPUSH ONE (21:05)
[2022-11-24 21:13] VITALS: BP 113/68; PULSE 60
== END 2022-11-24 21:23 | disposition home or self-care (01) ==
LOC: MW.ED 19:07
DX: O03.9 Complete or unspecified spontaneous abortion without complication (principal)
CPT/HCPCS: 36415; 76801; 80053; 81001; 84702; 85025; 85610; 86900; 86901; 96361; 96374; 96375; 99284; J1200; J1885; J2270; J2765; J7030

== ENCOUNTER 2023-01-12 19:19 | Emergency (ER) | payer MEDICAID ==
[2023-01-12] MEDS ORDERED: Dexamethasone 10 MG/ML SDV PO ONE (20:24)
[2023-01-12] MEDS ORDERED: Doxycycline 100 MG Cap PO ONE (20:24)
[2023-01-12] MEDS ORDERED: cefTRIAXone 500 MG in Lidocaine 1% 1 ML IM ONE (20:24)
[2023-01-12 22:10] VITALS: BP 109/78; PULSE 77
[2023-01-12 23:04] LABS: C. TRACHOMATIS BY PCR NOT DETECTED; N. GONORRHOEAE BY PCR NOT DETECTED
[2023-01-12 23:28] LABS: C. TRACHOMATIS BY PCR NOT DETECTED; N. GONORRHOEAE BY PCR NOT DETECTED
== END 2023-01-12 22:09 | disposition home or self-care (01) ==
LOC: MW.ED 19:19
DX: J02.9 Acute pharyngitis, unspecified (principal); Z20.2 Contact with and (suspected) exposure to infections with a predominantly sexual mode of transmission
CPT/HCPCS: 81001; 81025; 87070; 87491; 87529; 87591; 87880; 96372; 99283; A9270; J0696; J8540; J3490

== ENCOUNTER 2023-05-05 01:44 | Emergency (ER) | payer MEDICAID ==
[2023-05-05 01:59] VITALS: BP 148/86; PULSE 102
== END 2023-05-05 02:01 | disposition home or self-care (01) ==
LOC: MW.ED 01:44
DX: Z00.00 Encounter for general adult medical examination without abnormal findings (principal)
CPT/HCPCS: 99282; 99283

== ENCOUNTER 2023-05-05 19:21 | Emergency (ER) | payer MEDICAID ==
[2023-05-05 20:18] LABS: COLOR,URINE YELLOW; GLUCOSE,URINE NEGATIVE (NEGATIVE); KETONES,URINE >=80 mg/dL (NEGATIVE); LEUKOCYTE ESTERASE,URINE NEGATIVE (NEGATIVE); NITRITE,URINE NEGATIVE (NEGATIVE); OCCULT BLOOD,URINE TRACE-INTACT (NEGATIVE); PROTEIN,URINE 30 mg/dL (NEGATIVE); UROBILINOGEN,URINE 0.2 EU/dL (<2.0)
[2023-05-05 20:28] LABS: AMPHETAMINES SCREEN, URINE NEGATIVE (CUTOFF=500); BARBITURATE SCREEN,URINE NEGATIVE (CUTOFF=200); BENZODIAZEPINES SCREEN,URINE NEGATIVE (CUTOFF=150); BUPRENORPHINE SCREEN,URINE NEGATIVE (CUTOFF=10); METHADONE SCREEN, URINE NEGATIVE (CUTOFF=200); METHAMPHETAMINES SCREEN, URINE NEGATIVE (CUTOFF=500); OXYCODONE SCREEN,URINE NEGATIVE (CUT0FF=100); PCP SCREEN,URINE NEGATIVE (CUTOFF=25); PROPOXYPHENE SCREEN,URINE NEGATIVE (CUTOFF=300); THC SCREEN,URINE 20 NG/ML NEGATIVE (CUTOFF=50)
[2023-05-05 20:33] LABS: BASOPHILS PERCENT AUTO 0.4 % (0.0-1.5); EOSINOPHILS PERCENT AUTO 0.4 % (0.0-7.0); HEMATOCRIT 43.4 % (36.0-46.0); HEMOGLOBIN 14.1 g/dL (12.0-16.0); LYMPHOCYTES ABSOLUTE AUTO 3.1 K/uL (0.6-2.4); LYMPHOCYTES PERCENT AUTO 33.7 % (16.0-40.0); MEAN CORPUSCULAR HEMOGLOBIN 25.9 pg (27.0-32.0); MEAN CORPUSCULAR HGB CONC 32.5 g/dL (31.0-37.0); MEAN CORPUSCULAR VOLUME 79.8 fL (80.0-98.0); MONOCYTES ABSOLUTE AUTO 0.7 K/uL (0.0-0.8); MONOCYTES PERCENT AUTO 8.1 % (0.0-15.0); NEUTROPHILS ABSOLUTE AUTO 5.2 K/uL (1.4-5.7); NEUTROPHILS PERCENT AUTO 57.4 % (48.0-80.0); NRBC ABSOLUTE 0 K/uL; PLATELET COUNT,PLT 254 K/uL (150-400); RED BLOOD CELL COUNT 5.44 M/uL (4.30-5.90); WHITE BLOOD CELL COUNT,WBC 9.06 K/uL (4.0-11.0)
[2023-05-05 20:37] LABS: BILIRUBIN,URINE SMALL (NEGATIVE)
[2023-05-05 20:38] LABS: APPEARANCE,URINE HAZY
[2023-05-05 20:39] LABS: BACTERIA,URINE RARE (NEGATIVE); EPITHELIAL CELLS,URINE FEW (NONE-FEW); MUCUS,URINE MODERATE (NONE-MOD); RBC,URINE 0-2 (0-2/HPF); WBC,URINE 0-2 (0-5/HPF)
[2023-05-05 21:06] LABS: A/G RATIO 1.1 (0.9-1.6); ACETAMINOPHEN <2.0 ug/mL; ALANINE AMINOTRANSFERASE,ALT 24 IU/L (14-63); ALBUMIN 4.7 g/dL (3.4-5.0); ALKALINE PHOSPHATASE 78 U/L (46-116); ASPARTATE AMNIOTRANSFERASE,AST 17 IU/L (15-37); BLOOD UREA NITROGEN,BUN 7 mg/dL (7.0-18.0); CARBON DIOXIDE,CO2 24.9 mmol/L (21.0-32.0); CHLORIDE,CL 102 mmol/L (98-107); CREATININE 0.3 mg/dL (0.6-1.0); EST CRCL DRUG DOSING (CG) 189.79 mL/min; GLUCOSE RANDOM 90 mg/dL (74-106); MAGNESIUM 2.3 mg/dL (1.8-2.4); POTASSIUM,K 3.1 mmol/L (3.5-5.1); SALICYLATE 0.6 mg/dL (0.0-20.0); SODIUM,NA 141 mmol/L (136-145); TSH ULTRASENSITIVE 0.82 uIU/mL (0.36-3.74)
[2023-05-05 21:21] LABS: CALCIUM 9.3 mg/dL (8.5-10.1)
[2023-05-05 21:22] LABS: ESTIMATED GFR 143 mL/min (>60); ETHANOL BLOOD MEDICAL < 3.0 mg/dL
[2023-05-06 00:42] VITALS: BP 119/76; PULSE 92
[2023-05-06] MEDS ORDERED: OLANZapine 10 MG in Water For Injection, Sterile 2.1 ML IM ONE (00:45)
[2023-05-06] MEDS ORDERED: OLANZapine 10 MG Vial ONE (00:59)
== END 2023-05-06 01:20 | disposition left against medical advice (07) ==
LOC: MW.ED 19:21
DX: F30.9 Manic episode, unspecified (principal)
CPT/HCPCS: 36415; 70450; 80053; 80143; 80179; 80305; 80307; 81001; 83735; 84443; 84703; 85025; 96372; 99285; J2405; 99284; J3490

== ENCOUNTER 2023-05-06 02:46 | Emergency (ER) | payer MEDICAID ==
[2023-05-06] MEDS ORDERED: diphenhydrAMINE 50 MG/ML SDV IM ONE (02:47)
[2023-05-06] MEDS ORDERED: LORazepam 2 MG/ML SDV IM ONE (02:47)
[2023-05-06] MEDS ORDERED: Haloperidol Lactate 5 MG/ML SDV IM ONE (02:47)
[2023-05-06 07:02] VITALS: BP 93/58; PULSE 74
== END 2023-05-06 07:42 ==
LOC: MW.ED 02:46
DX: F30.9 Manic episode, unspecified (principal)
CPT/HCPCS: 96372; 99285; J1200; J1630; J2060; 99283